=== PATIENT | female | born 1970 | race Caucasian/White ===

== ENCOUNTER 2016-08-04 09:23 | Emergency (ER) | payer MEDICAID ==
--- NOTE | 2016-08-04 09:37 | Emergency Department Record ---
History of Present Illness - General Chief complaint: Dental Stated complaint: INFECTED TOOTH Time Seen by Provider: 08/04/16 09:29 Source: Patient Mode of Arrival: Ambulatory Limitations: No limitations - History of Present Illness Initial comments: The patient is here due to dental pain and swelling for 3 days. She has a long hx of dental issues and infections and now has pain and swelling over tooth # 12. She did go to an 2 days ago and was started on PCN and Motrin but now feels she is worse. MD complaint: Tooth pain (12.) Onset/Timin -: Days(s) Location: Tooth # Severity scale (1-10): 8 Quality: Aching Consistency: Constant Improves with: None Worsens with: None Context- Dental: History of dental caries Associated Symptoms: Toothache - Related Data Home Medications Medication Instructions Recorded Confirmed Last Taken Asenapine Maleate [Saphris] 5 mg PO DAILY 01/24/15 08/04/16 07/22/15 Dextroamphetamine/Amphetamine 20 mg PO DAILY 01/24/15 08/04/16 07/22/15 [Adderall] Oxcarbazepine [Trileptal] 600 mg PO BID 01/24/15 08/04/16 07/22/15 Alprazolam [Xanax] 1 mg PO TID 07/22/15 08/04/16 07/22/15 Asenapine Maleate [Saphris] 10 mg SL QHS 07/22/15 08/04/16 Unknown Previous Rx's Medication Instructions Recorded Clindamycin HCl [Cleocin HCl] 300 mg PO QID #28 capsule 08/04/16 Naproxen [Naprosyn] 500 mg PO BID #14 tablet. 08/04/16 Allergies Allergy/AdvReac Type Severity Reaction Status Date / Time No Known Drug Intolerances Allergy Unknown PT UNSURE Verified 08/04/16 09:29 OF REACTION Travel Screening - Travel/Exposure Within Last 30 Days Have you traveled within the last 30 days?: No Review of Systems Constitutional: Denies: Chills, Fever Eyes: Denies: Eye discharge ENT: Denies: Congestion Respiratory: Denies: Cough, Dyspnea Past Medical History - SOCIAL HISTORY Smoking Status: Current every day smoker Alcohol Use: None Drug Use: None - RESPIRATORY Hx Respiratory Disorders: No - CARDIOVASCULAR Hx Cardio Disorders: No - NEURO Hx Neuro Disorders: No - GI Hx GI Disorders: No - Hx Genitourinary Disorders: No - ENDOCRINE Hx Endocrine Disorders: No - MUSCULOSKELETAL Hx Musculoskeletal Disorders: No - PSYCH Hx Psych Problems: Yes Hx Anxiety: Yes Hx Behavior Problems: Yes Hx Depression: Yes Comment:: bipolar - HEMATOLOGY/ONCOLOGY Hx Hematology/Oncology Disorders: No Family Medical History Any Significant Family History?: No Physical Exam - General General Appearance: Alert, Oriented x3, Cooperative, No acute distress - Head Head exam: Atraumatic, Normocephalic, Normal inspection - Eye Eye exam: Normal appearance, PERRL - ENT ENT exam: negative: Normal exam Teeth exam: Dental caries, Dental tenderness # (12. There is mild swelling over the L maxillary area over tooth #12. ). negative: Normal inspection Throat exam: Normal inspection. negative: Tonsillar erythema, Tonsillomegaly - Neck Neck exam: Normal inspection, Full ROM. negative: Lymphadenopathy, Meningismus , Tenderness - Respiratory Respiratory exam: Normal lung sounds bilaterally Course Vital Signs 08/04/16 09:26 Temperature 99.1 F Pulse Rate 76 Respiratory 18 Rate Blood Pressure 132/95 Pulse Ox 98 - Reevaluation(s) Reevaluation #1: I did explain to the patient we will need to stop the PCN and Motrin and start the Clindamycin and Naprosyn. She is to F/U with her Dentist GONZALO. 08/04/16 09:40 Disposition Disposition: Discharge Clinical Impression: Pain, dental Disposition: Home, Self-Care Condition: (1) Good Instructions: Dental Abscess (ED) Additional Instructions: Please stop the Penicillin and Motrin and start the Clindamycin and Naprosyn. Please see your Dentist GONZALO. Return to the ER if worse. May also use Tylenol with the Naprosyn. Prescriptions: Clindamycin HCl [Cleocin HCl] 300 mg PO QID #28 capsule Naproxen [Naprosyn] 500 mg PO BID #14 tablet.dr Forms: Patient Portal Access Time of Disposition: 09:36
[2016-08-04] MEDS ORDERED: CLINDAMYCIN 600MG/4ML VIAL 600 MG in 0.9 % SODIUM CHLORIDE 100ML 100 ML IV ONE (09:50)
[2016-08-04] MEDS ORDERED: HYDROCODONE/APAP 7.5/325MG TABLET PO ONE (10:00)
== END 2016-08-04 10:47 | disposition home or self-care (01) ==
LOC: ER 09:23
DX: K08.89 Other specified disorders of teeth and supporting structures (principal)
CPT/HCPCS: 96374; 99284